=== PATIENT | female | born 1965 | race American Indian/Alaskan Native ===

== ENCOUNTER 2018-03-27 11:38 | Observation (INO) | payer OTHER ==
[2018-03-27] MEDS ORDERED: ASPIRIN PO ONE (12:56)
--- NOTE | 2018-03-27 12:59 | Emergency Department Report ---
ED Chest Pain HPI - General Chief Complaint: Weakness Stated Complaint: GENERAL WEAKNESS Time Seen by Provider: 03/27/18 12:34 Source: patient, old records reviewed (patient states she had a stress test here greater than 5 years ago. This is not in [facility] and likely on the previous charting system) Mode of arrival: Ambulatory Limitations: No Limitations - History of Present Illness Initial Comments: 53-year-old female with a past medical history diabetes (insulin and pills) hypertension, diabetic neuropathy, elevated cholesterol, occasional tobacco use presents possible complaints of episode of shortness of breath and chest tightness while climbing stairs at work. 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 She made up and down the stairs initially without any difficulty. Then while re-climbing the stairs had chest tightness, shortness of breath, nausea, diaphoresis, generalized weakness. Pt felt like she was going to pass out, Symptoms slowly improved while resting. Patient feels better now. Numbness to hands and legs similar to her previous neuropathy pain. She denies recent travel, unilateral leg, or history of PE/ DVT. Last stress test was greater than 5 years ago. PMD: Dr. Rosa Parisi - Related Data Allergies Allergy/AdvReac Type Severity Reaction Status Date / Time No Known Allergies Allergy Unverified 03/27/18 11:46 Heart Score - HEART Score History: Moderately suspicious EKG: Normal Age: 45-65 Risk factors: > 3 risk factors or hx of atherosclerotic disease Troponin: < normal limit HEART Score: 4 ED Review of Systems ROS: Stated complaint: GENERAL WEAKNESS Other details as noted in HPI Comment: All other systems reviewed and negative ED Past Medical Hx - Past Medical History Hx Hypertension: Yes Hx Diabetes: Yes Additional medical history: Neuropathy - Surgical History Additional Surgical History: uterine fibroids - Social History Smoking Status: Current Some Day Smoker Substance Use Type: Alcohol ED Physical Exam - General Limitations: No Limitations - Other Other exam information: General: No limitations, patient is alert in no acute distress Head exam: Atraumatic, normocephalic Eyes exam: Normal appearance ENT: Moist mucous membrane Neck exam: Normal inspection, full range of motion Respiratory exam: Clear to auscultation bilateral, no wheezes, rales, crackles Cardiovascular: Normal rate and rhythm, normal heart sounds Abdomen: Soft, nondistended, and nontender, with normal bowel sounds, no rebound, or guarding Extremity: Full range of motion normal inspection no deformity Back: Normal Inspection, full range of motion, no tenderness Neurologic: Alert, oriented x3, cranial nerves intact, no motor deficit Psychiatric: normal affect, normal mood Skin: Warm, dry, intact ED Course Vital Signs 03/27/18 11:46 Temperature 97.8 F Pulse Rate 71 Respiratory 18 Rate Blood Pressure 154/91 O2 Sat by Pulse 100 Oximetry FANI score - Fani Score Age > 65: (0) No Aspirin use within the Past 7 Days: (0) No 3 or more CAD Risk Factors: (1) Yes 2 or more Angina events in past 24 hrs: (0) No Known CAD with more than 50% Stenosis: (0) No Elevated Cardiac Markers: (0) No ST Deviation Greater than 0.5mm: (0) No FANI Score: 1 ED Medical Decision Making - Lab Data Result diagrams: 03/27/18 13:27 03/27/18 13:27 Lab Results 03/27/18 03/27/18 03/27/18 Range/Units 13:27 13:27 13:27 WBC 7.8 (4.5-11.0) K/mm3 RBC 4.45 (3.65-5.03) M/mm3 Hgb 14.2 (10.1-14.3) gm/dl Hct 42.6 (30.3-42.9) % MCV 96 (79-97) fl MCH 32 (28-32) pg MCHC 33 (30-34) % RDW 13.5 (13.2-15.2) % Plt Count 293 (140-440) K/mm3 Lymph % (Auto) 27.4 (13.4-35.0) % [place] % (Auto) 5.9 (0.0-7.3) % Eos % (Auto) 0.6 (0.0-4.3) % Baso % (Auto) 0.5 (0.0-1.8) % Lymph # 2.1 (1.2-5.4) K/mm3 [place] # 0.5 (0.0-0.8) K/mm3 Eos # 0.0 (0.0-0.4) K/mm3 Baso # 0.0 (0.0-0.1) K/mm3 Seg Neutrophils % 65.6 (40.0-70.0) % Seg Neutrophils # 5.1 (1.8-7.7) K/mm3 D-Dimer < 135.00 (0-234) ng/mlDDU Sodium 140 (137-145) mmol/L Potassium 4.0 (3.6-5.0) mmol/L Chloride 99.0 (98-107) mmol/L Carbon Dioxide 28 (22-30) mmol/L Anion Gap 17 mmol/L BUN 18 H (7-17) mg/dL Creatinine 0.7 (0.7-1.2) mg/dL Estimated GFR > 60 ml/min BUN/Creatinine Ratio 26 % Glucose 261 H (65-100) mg/dL Calcium 9.5 (8.4-10.2) mg/dL Troponin T < 0.010 (0.00-0.029) ng/mL - EKG Data -: EKG Interpreted by Tn EKG shows normal: sinus rhythm, axis (qrs 36), QRS complexes (qrsd 89), ST-T waves (nos mary/t inv) Rate: normal (67) - EKG Data When compared to previous EKG there are: previous EKG unavailable - Radiology Data Radiology results: report reviewed Chest 2 views: History: Chest pain. Findings: Normal cardiomediastinal silhouette the trachea is midline. No consolidation, pneumothorax or pleural effusion. Impression: No acute cardiopulmonary findings - Medical Decision Making Patient had chest tightness and shortness of breath associated with diaphoresis and lightheadedness. Patient has multiple cardiac risk factors and therefore will be admitted for stress testing. Initial cardiac enzymes and d-dimer negative. - Differential Diagnosis PE, FL, unstable angina, heat exhaustion Critical Care Time: No Critical care attestation.: If time is entered above; I have spent that time in minutes in the direct care of this critically ill patient, excluding procedure time. ED Disposition Clinical Impression: Chest pain, SOB (shortness of breath), HTN (hypertension), Diabetes Disposition: 09 OP ADMIT IP TO THIS HOSP Is pt being admited?: Yes Does the pt Need Aspirin: Yes Condition: Stable Time of Disposition: 14:09 (Dr Crawford/hosp)
[2018-03-27 13:49] LABS: Basophils % (Auto) 0.5 % (0.0-1.8); Eosinophils % (Auto) 0.6 % (0.0-4.3); Hematocrit 42.6 % (30.3-42.9); Hemoglobin 14.2 gm/dl (10.1-14.3); Lymphocytes # (Auto) 2.1 K/mm3 (1.2-5.4); Lymphocytes % (Auto) 27.4 % (13.4-35.0); Mean Corpuscular HGB Conc 33 % (30-34); Mean Corpuscular Hemoglobin 32 pg (28-32); Mean Corpuscular Volume 96 fl (79-97); Monocytes # (Auto) 0.5 K/mm3 (0.0-0.8); Monocytes % (Auto) 5.9 % (0.0-7.3); Platelet Count 293 K/mm3 (140-440); Red Blood Count 4.45 M/mm3 (3.65-5.03); Red Cell Distribution Width 13.5 % (13.2-15.2)
--- NOTE | 2018-03-27 13:57 | XRay Report ---
Chest 2 views: History: Chest pain. Findings: Normal cardiomediastinal silhouette the trachea is midline. No consolidation, pneumothorax or pleural effusion. Impression: No acute cardiopulmonary findings
[2018-03-27 14:02] LABS: BUN/Creatinine Ratio 26; Blood Urea Nitrogen 18 mg/dL (7-17); Calcium 9.5 mg/dL (8.4-10.2); Hemolysis Index 5
[2018-03-27 14:14] LABS: Chol/HDL Ratio 2.75 %
[2018-03-27] MEDS ORDERED: NITROSTAT SL PRN (14:17)
[2018-03-27] MEDS ORDERED: TYLENOL PO PRN (14:17)
[2018-03-27] MEDS ORDERED: SODIUM CHLORIDE FLUSH SYRINGE 10 ML IV PRN ×2 (14:17)
[2018-03-27] MEDS ORDERED: ZOFRAN IV PRN (14:17)
[2018-03-27] MEDS ORDERED: MORPHINE IV PRN (14:17)
[2018-03-27] MEDS ORDERED: BABY ASPIRIN PO STA (14:17)
[2018-03-27] MEDS ORDERED: PROVENTIL IH PRN (14:17)
--- NOTE | 2018-03-27 14:20 | History and Physical Report ---
History of Present Illness Chief complaint: My chest started hurting this morning History of present illness: 53 YO Female with HTN, HLD, DM complicated by Peripheral Neuropathy, Nicotine Dependence, Uterine Fibroids presents to ED for evaluation. Pt states that she has experienced acute onset of chest pain and shortness of breath while climbing stairs at her job. Pt states that she felt as if she was gonig to pass out. Pt states that pain in 5/10, intermittent, substernal, nonradiating, worsened with exertion, relieved with rest, associated with shortness of breath , diaphoresis, nausea, and generalized weakness. Pt states that symptoms have improved at time of evaluation. Pt denies fever, chills, palpitations, trauma, BRBPR, unilateral leg swelling, calf pain, productive cough, prolonged travel/ immobility, hemoptysis, individual/family history of DVT/PE, recent ill contacts. Pt seen and evaluated in ED and found to have symptoms consistent with ACS as well as diastolic CHF. Cardiology consulted in ED. Pt admitted to telemetry. Past History Past Medical History: diabetes, hypertension, hyperlipidemia Past Surgical History: No surgical history, Other (reviewed) Social history: single, smoking Family history: diabetes, hypertension Medications and Allergies Allergies Allergy/AdvReac Type Severity Reaction Status Date / Time No Known Allergies Allergy Unverified 03/27/18 11:46 Review of Systems Constitutional: no weight loss, no weight gain, no fever, no chills Ears, nose, mouth and throat: no ear pain, no ear discharge, no tinnitis, no decreased hearing, no nose pain, no nasal congestion Breasts: no change in shape, no swelling, no mass Cardiovascular: chest pain, shortness of breath Respiratory: no cough, no cough with sputum, no excessive sputum, no hemoptysis Gastrointestinal: no nausea, no vomiting, no diarrhea, no constipation, no change in bowel habits Menstruation: no premenarcheal, no post hysterectomy, no ammenorrhea, no ammenorrhea on BC, no period normal, no period heavy, no period spotting, no period light Rectal: no pain Musculoskeletal: no neck pain, no shooting arm pain, no arm numbness/tingling, no low back pain, no shooting leg pain, no leg numbness/tingling Integumentary: no rash, no pruritis, no redness, no sores, no wounds Neurological: no head injury, no transient paralysis, no paralysis, no weakness , no parathesias, no tingling, no seizures, no syncope Psychiatric: no anxiety, no memory loss, no change in sleep habits, no sleep disturbances, no insomnia, no hypersomnia Endocrine: no cold intolerance, no heat intolerance, no polyphagia, no excessive thirst, no polydipsia, no polyuria, no nocturia Hematologic/Lymphatic: no easy bruising, no easy bleeding, no lymphadenopathy, no lymphedema Allergic/Immunologic: no urticaria, no allergic rhinitis, no wheezing, no persistent infections, no anaphylaxis Exam - Constitutional Vitals: Temp Pulse Resp BP Pulse Ox 97.8 F 71 18 154/91 98 03/27/18 11:46 03/27/18 11:46 03/27/18 14:15 03/27/18 11:46 03/27/18 14:15 General appearance: Present: mild distress - EENT Eyes: Present: PERRL ENT: hearing intact, clear oral mucosa - Neck Neck: Present: supple, normal ROM - Respiratory Respiratory effort: normal Respiratory: bilateral: CTA - Cardiovascular Heart Sounds: Present: S1 & S2. Absent: rub, click - Extremities Extremities: pulses symmetrical, No edema Peripheral Pulses: within normal limits - Abdominal General gastrointestinal: Present: soft, non-tender, non-distended, normal bowel sounds Female genitourinary: Present: normal - Integumentary Integumentary: Present: clear, warm, dry - Musculoskeletal Musculoskeletal: gait normal, strength equal bilaterally - Psychiatric Psychiatric: appropriate mood/affect, intact judgment & insight - Neurologic Neurologic: CNII-XII intact, moves all extremities Results - Labs CBC & Chem 7: 03/27/18 13:27 03/27/18 13:27 Labs: Abnormal lab results 03/27/18 03/27/18 Range/Units 13:27 13:27 BUN 18 H (7-17) mg/dL Glucose 261 H (65-100) mg/dL HDL Cholesterol 70 H (40-59) mg/dL Assessment and Plan - Patient Problems (1) ACS (acute coronary syndrome) Current Visit: Yes Status: Acute Plan to address problem: Admit to telemtry: serial cardiac enzymes, ekg, telemetry, echo, stress test, morphine, supplemental oxygen, nitro, aspirin (2) Diastolic CHF Current Visit: Yes Status: Acute Qualifiers: Heart failure chronicity: acute Qualified Code(s): I50.31 - Acute diastolic (congestive) heart failure Plan to address problem: Admit to telemetry: Strict I/O, Monitor uop q shift, supplemental oxygen, Echo, chest X ray, BNP, D dimer, cardiology consulted in ED, (3) Diabetes Current Visit: Yes Status: Acute Plan to address problem: ADA diet, insulin, accu check (4) HTN (hypertension) Current Visit: Yes Status: Acute Qualifiers: Hypertension type: essential hypertension Qualified Code(s): I10 - Essential (primary) hypertension Plan to address problem: monitor bp q shift, resume prehospital medication, continue medical management. (5) DVT prophylaxis Current Visit: Yes Status: Acute Plan to address problem: SCD to BLE while in bed.
[2018-03-27] MEDS ORDERED: D50W (25GM) Syringe IV PRN (17:29)
[2018-03-27] MEDS: HumaLOG SUB-Q SCH (17:36)
[2018-03-27] MEDS: SODIUM CHLORIDE FLUSH SYRINGE 10 ML IV SCH (22:05)
[2018-03-28] MEDS: HumaLOG SUB-Q SCH ×5 (01:24→22:10)
[2018-03-28] MEDS ORDERED: LEXISCAN IV ONE (11:00)
[2018-03-28] MEDS: SODIUM CHLORIDE FLUSH SYRINGE 10 ML IV SCH ×2 (13:21→21:45)
--- NOTE | 2018-03-28 16:12 | Progress Note ---
Assessment and Plan Assessment and plan: 53-year-old -[place] female with past medical history significant for hypertension, diabetes mellitus, peripheral neuropathy presented to the emergency department with complaints of shortness of breath and chest pain. Chest pain - Cardiac enzymes were negative, stress test is pending - Cardiology consulted Congestive heart failure - Pending echo Hypertension - Well-controlled Diabetes mellitus type 2 - Continue her home insulin regimen, sliding scale insulin, ADA diet Peripheral neuropathy - On gabapentin Disposition - Continue inpatient care, possible discharge tomorrow. History Interval history: Patient was seen and evaluated, patient's chest pain subsided. Hospitalist Physical - Physical exam Narrative exam: Not in cardiopulmonary distress. The patient appeared well nourished and normally developed. Vital signs as documented. Head exam is unremarkable. No scleral icterus . Neck is without jugular venous distension, thyromegaly, or carotid bruits. Lungs are clear to auscultation. Cardiac exam reveals regular rate and Rhythm. First and second heart sounds normal. No murmurs, rubs or gallops. Abdominal exam reveals normal bowel sounds, no masses, no organomegaly and no aortic enlargement. Extremities are nonedematous and both femoral and pedal pulses are normal. 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 No focal weakness. - Constitutional Vitals: Temp Pulse Resp BP Pulse Ox 98.2 F 90 20 123/73 100 03/28/18 08:06 03/28/18 11:21 03/28/18 08:06 03/28/18 11:21 03/28/18 10:00 General appearance: Present: mild distress Results - Labs CBC & Chem 7: 03/27/18 13:27 03/27/18 13:27 Labs: Laboratory Last Values WBC 7.8 K/mm3 (4.5-11.0) 03/27/18 13:27 RBC 4.45 M/mm3 (3.65-5.03) 03/27/18 13:27 Hgb 14.2 gm/dl (10.1-14.3) 03/27/18 13:27 Hct 42.6 % (30.3-42.9) 03/27/18 13:27 MCV 96 fl (79-97) 03/27/18 13:27 MCH 32 pg (28-32) 03/27/18 13:27 MCHC 33 % (30-34) 03/27/18 13:27 RDW 13.5 % (13.2-15.2) 03/27/18 13:27 Plt Count 293 K/mm3 (140-440) 03/27/18 13:27 Lymph % (Auto) 27.4 % (13.4-35.0) 03/27/18 13:27 [place] % (Auto) 5.9 % (0.0-7.3) 03/27/18 13:27 Eos % (Auto) 0.6 % (0.0-4.3) 03/27/18 13:27 Baso % (Auto) 0.5 % (0.0-1.8) 03/27/18 13:27 Lymph # 2.1 K/mm3 (1.2-5.4) 03/27/18 13:27 [place] # 0.5 K/mm3 (0.0-0.8) 03/27/18 13:27 Eos # 0.0 K/mm3 (0.0-0.4) 03/27/18 13:27 Baso # 0.0 K/mm3 (0.0-0.1) 03/27/18 13:27 Seg Neutrophils % 65.6 % (40.0-70.0) 03/27/18 13:27 Seg Neutrophils # 5.1 K/mm3 (1.8-7.7) 03/27/18 13:27 D-Dimer < 135.00 ng/mlDDU (0-234) 03/27/18 13:27 Sodium 140 mmol/L (137-145) 03/27/18 13:27 Potassium 4.0 mmol/L (3.6-5.0) 03/27/18 13:27 Chloride 99.0 mmol/L (98-107) 03/27/18 13:27 Carbon Dioxide 28 mmol/L (22-30) 03/27/18 13:27 Anion Gap 17 mmol/L 03/27/18 13:27 BUN 18 mg/dL (7-17) H 03/27/18 13:27 Creatinine 0.7 mg/dL (0.7-1.2) 03/27/18 13:27 Estimated GFR > 60 ml/min 03/27/18 13:27 BUN/Creatinine Ratio 26 % 03/27/18 13:27 Glucose 261 mg/dL (65-100) H 03/27/18 13:27 POC Glucose 313 (70-105) H 03/28/18 13:12 Calcium 9.5 mg/dL (8.4-10.2) 03/27/18 13:27 Troponin T < 0.010 ng/mL (0.00-0.029) 03/27/18 20:52 Triglycerides 89 mg/dL (2-149) 03/27/18 13:27 Cholesterol 193 mg/dL (50-199) 03/27/18 13:27 LDL Cholesterol Direct 118 mg/dL (50-130) 03/27/18 13:27 HDL Cholesterol 70 mg/dL (40-59) H 03/27/18 13:27 Cholesterol/HDL Ratio 2.75 % 03/27/18 13:27
[2018-03-28] MEDS: NEURONTIN PO SCH (21:45)
[2018-03-28] MEDS ORDERED: INSULIN GLARGINE HUM REC ANLOG 23 UNIT SUB-Q SCH (22:00)
[2018-03-28] MEDS ORDERED: LANTUS SUB-Q SCH (22:00)
[2018-03-29] MEDS: HumaLOG SUB-Q SCH ×2 (01:02→06:17)
[2018-03-29 09:37] VITALS: BP 142/77
[2018-03-29] MEDS ORDERED: NON-FORMULARY (Liraglutide [Victoza 2-Pak] 1.8 MG) SUB-Q SCH (10:00)
[2018-03-29] MEDS ORDERED: NORVASC PO SCH (10:00)
[2018-03-29] MEDS: NEURONTIN PO SCH (10:07)
[2018-03-29] MEDS: SODIUM CHLORIDE FLUSH SYRINGE 10 ML IV SCH (10:07)
--- NOTE | 2018-03-29 10:33 | Progress Note ---
Assessment and Plan - Patient Problems (1) Chest pain Current Visit: Yes Status: Acute Plan to address problem: Chest pain, atypical normal MPI this admission No further cardiac workup indicated. Stable cardiac niño for discharge. Subjective Date of service: 03/29/18 Interval history: Patient has no complaints. She denies chest pain and shortness of breath. Objective Vital Signs Temp Pulse Resp BP Pulse Ox 03/29/18 07:42 97.4 F L 60 19 142/77 100 03/29/18 06:00 57 L 03/29/18 04:43 97.4 F L 61 16 160/88 100 03/28/18 23:42 99.3 F 86 16 143/68 99 03/28/18 23:38 97.6 F 77 16 128/76 98 03/28/18 22:17 100 03/28/18 21:56 70 03/28/18 20:20 97.5 F L 72 16 163/87 100 03/28/18 16:51 98.0 F 78 18 139/81 99 03/28/18 11:21 90 123/73 03/28/18 11:20 91 H 125/79 03/28/18 11:19 91 H 137/84 03/28/18 11:18 92 H 144/81 03/28/18 11:17 107 H 153/85 03/28/18 11:16 114 H 159/89 03/28/18 11:12 63 144/92 - Physical Examination General: No Apparent Distress HEENT: Positive: PERRL Cardiac: Positive: Reg Rate and Rhythm Lungs: Positive: Decreased Breath Sounds Neuro: Positive: Grossly Intact
--- NOTE | 2018-03-29 11:57 | Discharge Summary ---
Providers - Providers Date of Admission: 03/27/18 14:17 Attending physician: AYO VILLALOBOS MD 03/27/18 Consult to Cardiac Rehabilitation [CONS] Routine Reason For Exam: Phase I 03/27/18 14:17 Consult to Cardiology [CONS] Routine Consulting Provider: MARIJA MIKE Reason For Exam: acs/chf-spoke to Dr. Spencer Robbins @ 2008 Primary care physician: ROHAN JAFFE Hospitalization Reason for admission: Chest pain Condition: Stable Pertinent studies: Cardiac stress test was done and negative for acute ischemia Echo reading pending Hospital course: 53 YO Female with HTN, HLD, DM complicated by Peripheral Neuropathy, Nicotine Dependence, Uterine Fibroids presents to ED for evaluation. Pt states that she has experienced acute onset of chest pain and shortness of breath while climbing stairs at her job. Pt states that she felt as if she was gonig to pass out. Pt states that pain in 5/10, intermittent, substernal, nonradiating, worsened with exertion, relieved with rest, associated with shortness of breath , diaphoresis, nausea, and generalized weakness. Pt states that symptoms have improved at time of evaluation. Pt denies fever, chills, palpitations, trauma, BRBPR, unilateral leg swelling, calf pain, productive cough, prolonged travel/ immobility, hemoptysis, individual/family history of DVT/PE, recent ill contacts. Pt seen and evaluated in ED and found to have symptoms consistent with ACS as well as diastolic CHF. Cardiology consulted in ED. Pt admitted to telemetry. Patient was admitted and serial troponins was negative, cardiac stress test was negative. Chest pain resolved. Patient is hemodynamically stable. Echo reading was pending and patient told me that the cardiology NEUROPSYCHOLOGY SERVICE DIRECTOR told her she will call her with her echo result when it is read. Patient discharged home in stable condition. Disposition: DC-01 TO HOME OR SELFCARE Time spent for discharge: 32 minutes - Discharge Diagnoses (1) Chest pain Status: Acute (2) Diabetes Status: Acute (3) HTN (hypertension) Status: Acute Qualifiers: Hypertension type: essential hypertension Qualified Code(s): I10 - Essential (primary) hypertension (4) SOB (shortness of breath) Status: Acute Core Measure Documentation - Palliative Care Palliative Care/ Comfort Measures: Not Applicable - Core Measures Any of the following diagnoses?: none Exam - Physical Exam Narrative exam: Not in cardiopulmonary distress. The patient appeared well nourished and normally developed. Vital signs as documented. Head exam is unremarkable. No scleral icterus . Neck is without jugular venous distension, thyromegaly, or carotid bruits. Lungs are clear to auscultation. Cardiac exam reveals regular rate and Rhythm. First and second heart sounds normal. No murmurs, rubs or gallops. Abdominal exam reveals normal bowel sounds, no masses, no organomegaly and no aortic enlargement. Extremities are nonedematous and both femoral and pedal pulses are normal. 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 No focal weakness. - Constitutional Vitals: Temp Pulse Resp BP Pulse Ox 97.4 F L 54 L 19 142/77 100 03/29/18 07:42 03/29/18 11:15 03/29/18 07:42 03/29/18 07:42 03/29/18 07:42 Plan Activity: no restrictions Weight Bearing Status: Full Weight Bearing Diet: low cholesterol, low salt, diabetic Follow up with: ROHAN JAFFE MD [Primary Care Provider] - 7 Days
--- NOTE | 2018-03-29 14:20 | Query- Chest Pain ---
Chemo Rossi__Angeline Date:___03/29/2018 Amee/RADHA:___Zabrina Phone#:___[phone] Exercise your independent professional judgment when responding to query. Questions asked do not imply a particular answer is desired or expected. We greatly appreciate your clarification on this issue. Clinical Documentation States: 53 Year old female was admitted on 03/27/2018 with complaints of shortness of breath and chest pain. The Discharge summary stated "- Discharge Diagnoses (1) Chest pain Status: Acute." Please document the etiology of Chest Pain: [ ] Myocardial Infarction [ ] Pneumonia [ ] Mediastinitis [x ] Costochondritis [ ] Pulmonary Embolism [ ] Coronary Artery Disease [ ] GERD [ ] Other: [ ] Comment/Explanation: Present on Admission: [ x] Yes (Y) [ ] Clinically undeterminable (W) [ ] No(N) Please document response in your Progress Notes and/or Discharge Summary and indicate if the condition was present on admission. DAVID
--- NOTE | 2018-04-01 05:17 | Treadmill Report ---
THALLIUM STRESS TEST LEFT VENTRICLE: Left ventricular chamber size is within normal spread. Perfusion study showed a homogeneous uptake of the tracer in all segments, no significant perfusion defects identified. Gated analysis demonstrates normal left ventricular systolic function, ejection fraction 64%. CONCLUSION: Normal myocardial perfusion study. JOB# [id number] CA/NTS
== END 2018-03-29 13:18 | disposition home or self-care (01) ==
LOC: ED 11:38 → INTOOBSV 14:17 → 4A 14:17
PROVIDERS: ADMIT Internal Medicine; ATTEND Internal Medicine
DX: I24.9 Acute ischemic heart disease, unspecified (principal); I11.0 Hypertensive heart disease with heart failure; I50.31 Acute diastolic (congestive) heart failure; E78.5 Hyperlipidemia, unspecified; E11.42 Type 2 diabetes mellitus with diabetic polyneuropathy; F17.200 Nicotine dependence, unspecified, uncomplicated; Z72.89 Other problems related to lifestyle; Z82.49 Family history of ischemic heart disease and other diseases of the circulatory system
CPT/HCPCS: 36415; 71046; 78452; 80048; 80061; 82962; 84484; 85025; 85379; 93005; 93010; 93017; 93306; 96372; 99285; 99406; A9502; G0378; J2785; J1815